=== PATIENT | female | born 1985 | race Two or more races ===

== ENCOUNTER 2019-06-23 17:57 | Emergency (ER) | payer OTHER ==
[~2019-06-23] VITALS: Ht 165.1 cm; Wt 164.8 kg
[2019-06-23 18:08] VITALS: BP 141/88
--- NOTE | 2019-06-23 19:49 | NUR ---
F/U CALL PLACED TO LAB IN REGARDS TO DELAY IN LABS, TECH STATES PROCESSING NOW
--- NOTE | 2019-06-23 20:49 | NUR ---
PA AT BEDSIDE TO DISCUSS WITH PT
[2019-06-23 20:52] LABS: RAPID INFLUENZA A Negative (Negative); RAPID INFLUENZA B Negative (Negative)
== END 2019-06-23 21:12 | disposition home or self-care (01) ==
LOC: ED 21:10
DX: B34.9 Viral infection, unspecified (principal); H92.02 Otalgia, left ear
CPT/HCPCS: 87081; 87400; 87880; 99283